=== PATIENT | female | born 1995 | race Caucasian/White ===

== ENCOUNTER 2021-08-19 01:46 | Emergency (ER) | payer OTHER ==
[2021-08-19 02:59] LABS: HEMOGLOBIN 13.6 gm/dl (12.3-15.3); RED BLOOD COUNT 4.74 M/UL (4.00-5.10); WHITE BLOOD COUNT 7.9 K/UL (4.5-11.0)
[2021-08-19 03:16] LABS: BUN/CREATININE RATIO 14 (0-10)
== END 2021-08-19 04:15 | disposition home or self-care (01) ==
LOC: ER1 01:46
PROVIDERS: Physician Assistant
DX: R11.0 Nausea (principal); F17.290 Nicotine dependence, other tobacco product, uncomplicated
CPT/HCPCS: 80053; 80307; 85025; 99283